=== PATIENT | female | born 2005 | race Caucasian/White ===

== ENCOUNTER 2024-08-16 22:00 | Inpatient (IN) | payer OTHER ==
[2024-08-17] MEDS: LACTATED RINGERS SOLUTION 1,000 ML IV SCH (02:30)
[2024-08-17 02:36] VITALS: BMI 32.4
[2024-08-17 02:56] LABS: ABSOLUTE IMMATURE GRANULOCYTES 0.12 x10^3/uL (0.0-0.031); BASOPHILS # 0.02 x10^3/uL (0.01-0.08); EOSINOPHIL % 0.3 % (0.7-5.8); EOSINOPHILS # 0.04 x10^3/uL (0.04-0.36); HEMATOCRIT 29.2 % (34.1-44.9); HEMOGLOBIN 10.4 g/dL (11.2-15.7); MCHC 35.6 g/dl (32.2-35.5); MEAN CELL VOLUME 88.5 fl (79.4-94.8); MEAN PLT VOLUME 10.7 fl (9.4-12.3); MONOCYTE # 0.89 x10^3/uL (0.24-0.86); PLATELET COUNT 157 x10^3/uL (182-369); RDW 12.2 % (12.0-16.2)
[2024-08-17 03:04] LABS: INR 0.93 (0.83-1.09); PROTHROMBIN TIME (PATIENT) 10.2 SEC (9.7-13.0)
[2024-08-17] MEDS ORDERED: AMPICILLIN SODIUM 2 GM VIAL ONE ×2 (03:05→11:02)
[2024-08-17] MEDS: AMPICILLIN - 2 GM in SODIUM CHLORIDE 100 ML IVPB ONE (03:05)
[2024-08-17 03:06] LABS: ACTIVATED PTT 27.5 SECONDS (25.2-36.5)
[2024-08-17 03:15] LABS: POTASSIUM 3.9 mmol/L (3.5-5.1)
[2024-08-17 03:17] LABS: CALCIUM 8.8 mg/dL (8.5-10.1)
[2024-08-17 03:18] LABS: BLOOD UREA NITROGEN 9.7 mg/dL (7-18)
[2024-08-17 03:21] LABS: CREATININE 0.5 mg/dL (0.55-1.3)
[2024-08-17] MEDS ORDERED: AMPICILLIN SODIUM 1 GM VIAL ONE ×5 (06:26→23:37)
[2024-08-17] MEDS: AMPICILLIN - 1 GM in SODIUM CHLORIDE 100 ML IVPB SCH (06:30)
[2024-08-17] MEDS: OXYTOCIN 30 UNITS in 0.9% NS 30 UNIT/500 ML INFUS.BAG IVPB SCH (10:20)
[2024-08-17] MEDS: ELECTROLYTE-148 SOLN 1,000 ML IV SCH (11:11)
[2024-08-17] MEDS ORDERED: NALOXONE HCL 0.4 MG/ML VIAL IVPUSH PRN (22:32)
[2024-08-17] MEDS ORDERED: FENTANYL/BUPIVACAINE/NS/PF - PCEA - 50 ML DISP.SYRIN EP ONE (22:37)
[2024-08-17] MEDS: FENTANYL/BUPIVACAINE/NS/PF - PCEA - 50 ML DISP.SYRIN EP SCH (22:53)
[2024-08-18] MEDS ORDERED: LIDOCAINE HCL 1% PRESERVATIVE FREE - 30ML VIAL ONE (02:11)
[2024-08-18] MEDS ORDERED: OXYTOCIN 20 UNITS in 0.9% NS 20 UNIT/1,000 ML INFUS.BAG IV ONE (02:12)
[2024-08-18] MEDS ORDERED: FENTANYL/BUPIVACAINE/NS/PF - PCEA - 50 ML DISP.SYRIN EP ONE (02:22)
[2024-08-18] MEDS: OXYTOCIN 20 UNITS in 0.9% NS 20 UNIT/1,000 ML INFUS.BAG IV SCH (03:30)
[2024-08-18] MEDS ORDERED: BENZOCAINE 20% 57 GM BOTTLE TP PRN (03:53)
[2024-08-18] MEDS ORDERED: BISACODYL 10 MG SUPP.RECT RC PRN (03:53)
[2024-08-18] MEDS ORDERED: METHYLERGONOVINE MALEATE 0.2 MG/1 ML AMP IM PRN (03:53)
[2024-08-18] MEDS ORDERED: BENZOCAINE 28 GM HEMORRHOIDAL OINTMENT TP PRN (03:53)
[2024-08-18] MEDS ORDERED: WITCH HAZEL 50% (TUCKS) 40 PAD/JAR PAD TP PRN (03:53)
[2024-08-18] MEDS ORDERED: oxyCODONE HCL 5 MG TABLET PO PRN (03:53)
[2024-08-18 04:05] LABS: CORD BASE EXCESS -6.6 mmol/L (0-2); CORD HCO3 18.7 mmHg (20-29); CORD PCO2 36.9 mmHg (30-78); CORD pH 7.322 (7.14-7.44)
[2024-08-18] MEDS: IBUPROFEN 600 MG TABLET (FP) PO PRN (08:46)
[2024-08-18] MEDS: PRENATAL VITAMINS W/ FOLIC ACID TABLET (FP) PO SCH (09:44)
[2024-08-18] MEDS: ACETAMINOPHEN 325 MG TABLET (FP) PO PRN (09:45)
[2024-08-19 02:12] VITALS: RESP 18
[2024-08-19 08:30] LABS: ABSOLUTE IMMATURE GRANULOCYTES 0.27 x10^3/uL (0.0-0.031); BASOPHILS # 0.03 x10^3/uL (0.01-0.08); EOSINOPHIL % 0.7 % (0.7-5.8); EOSINOPHILS # 0.06 x10^3/uL (0.04-0.36); HEMATOCRIT 25.9 % (34.1-44.9); HEMOGLOBIN 8.9 g/dL (11.2-15.7); MCHC 34.4 g/dl (32.2-35.5); MEAN CELL VOLUME 92.8 fl (79.4-94.8); MEAN PLT VOLUME 10.7 fl (9.4-12.3); MONOCYTE # 0.62 x10^3/uL (0.24-0.86); MONOCYTE % 7.4 % (4.7-12.5); PLATELET COUNT 115 x10^3/uL (182-369); RDW 12.7 % (12.0-16.2)
[2024-08-19] MEDS ORDERED: SENNOSIDES/DOCUSATE COMBO (SENNA PLUS) TABLET (UD) PO PRN (22:00)
[2024-08-20 10:06] VITALS: BP 124/80; PULSE 70; TEMP 98
== END 2024-08-20 14:30 | disposition home or self-care (01) | DRG 560 ==
LOC: JDEL 22:00 → JLDR 08-17 01:50 → J3W 08-18 05:55
PROVIDERS: ADMIT Obstetrics & Gynecology; ATTEND Obstetrics & Gynecology
PROC: 0KQM0ZZ Repair Perineum Muscle, Open Approach (ICD-10-PCS; principal; 2024-08-18)
PROC: 10E0XZZ Delivery of Products of Conception, External Approach (ICD-10-PCS; 2024-08-18)
DX: O48.0 Post-term pregnancy (principal); O99.824 Streptococcus B carrier state complicating childbirth; O70.1 Second degree perineal laceration during delivery; Z3A.40 40 weeks gestation of pregnancy; O99.02 Anemia complicating childbirth; D64.9 Anemia, unspecified; Z37.0 Single live birth
CPT/HCPCS: 36415; 36600; 59409; 80048; 82803; 85025; 85610; 85730; 86780; 86850; 86900; 86901; 96372; J2790